=== PATIENT | male | born 1965 | race African-American/Black ===

== ENCOUNTER 2017-04-17 14:30 | Emergency (ER) | payer MEDICARE ==
[2017-04-17 16:13] LABS: #Lymphocytes 1.3 thou/uL (1.20-3.40); #Monocytes 0.4 thou/uL (0.11-0.59); #Neutrophils 3.7 thou/uL (1.40-6.50); %Basophils 0.8 % (0.0-1.0); %Eosinophils 0.3 % (0.0-10.0); %Lymphocytes 24.3 % (21.0-51.0); %Monocytes 7.3 % (0.0-10.0); Hematocrit 47.8 % (42.0-52.0); Mean Platelet Volume 7.3 fL (7.4-10.4); Red Blood Cell (RBC) Count 4.52 mill/uL (4.70-6.10); White Blood Cell (WBC) Count 5.5 thou/uL (4.8-10.8)
--- NOTE | 2017-04-17 16:25 | RAD ---
TWO VIEWS CHEST INDICATION: Chest pain. FINDINGS: There is no consolidation, effusion, or pneumothorax. Cardiac silhouette is normal in size. IMPRESSION: No focal consolidation. POS: [facility]
[2017-04-17 16:32] LABS: Macrocytosis SLIGHT = 6-15 cells (100X) (0-5/hpf)
[2017-04-17 16:34] LABS: ALT (SGPT) 55 U/L (8-55); AST (SGOT) 121 U/L (5-34); Alkaline Phosphatase 91 U/L (40-150); Anion Gap 20 mmol/L (10-20); BUN (Urea Nitrogen) 4 mg/dL (8.4-25.7); Bilirubin, Total 1.4 mg/dL (0.2-1.2); CK (CPK) 124 U/L (30-200); Calc. Creatinine Clearance 0 mL/min (70-130); Calcium 9.7 mg/dL (7.8-10.44); Carbon Dioxide 24 mmol/L (22-29); Chloride 100 mmol/L (98-107); Estimated GFR-MDRD 83; Globulin 3.6 g/dL (2.4-3.5)
[2017-04-17 16:37] LABS: Troponin I Less than 0.010 ng/mL (< 0.028)
[2017-04-17 19:57] LABS: Troponin I Less than 0.010 ng/mL (< 0.028)
--- NOTE | 2017-04-19 15:24 | EKG ---
Test Reason : EKG CHANGES Blood Pressure : / mmHG Vent. Rate : 085 BPM Atrial Rate : 085 BPM P-R Int : 146 ms QRS Dur : 070 ms QT Int : 382 ms P-R-T Axes : 077 059 067 degrees QTc Int : 454 ms Normal sinus rhythm Possible Left atrial enlargement Nonspecific T wave abnormality No STEMI Abnormal ECG Confirmed by LILO ARAGON M.D. ([id number]), loan expeditor ANDREA DOMINGO ([id number] on 04/19/2017 3:23:52 PM Referred By: RICHARDSON Confirmed By:LILO ARAGON M.D.
== END 2017-04-17 20:20 | disposition home or self-care (01) ==
LOC: ERS 14:30
DX: I10 Essential (primary) hypertension (principal); R94.31 Abnormal electrocardiogram [ECG] [EKG]; F31.9 Bipolar disorder, unspecified; F17.210 Nicotine dependence, cigarettes, uncomplicated
CPT/HCPCS: 36415; 71020; 80053; 82553; 84484; 85025; 93005; 99406

== ENCOUNTER 2019-03-22 07:40 | Outpatient (CLI) | payer MEDICARE, MEDICAID ==
--- NOTE | 2019-03-22 08:10 | RAD ---
EXAM: Two views chest PROVIDED CLINICAL HISTORY: Cough. COMPARISON: 04/17/2017 FINDINGS: Cardiac silhouette and pulmonary vasculature are within normal limits. The lungs are clear. The osse ous structures have a normal appearance. Chest is stable compared to prior study. IMPRESSION: No acute cardiopulmonary process.
== END 2019-03-22 07:41 | disposition home or self-care (01) ==
LOC: BICRAD 07:40
PROVIDERS: ATTEND Internal Medicine
DX: R05 Cough (principal)
CPT/HCPCS: 71046

== ENCOUNTER 2021-09-19 14:49 | Inpatient (IN) | payer MEDICARE, MEDICAID ==
[2021-09-19] MEDS ORDERED: Ondansetron PF 4 MG/2 ML Vial ONE (15:25)
[2021-09-19 16:16] LABS: #Basophils 0.1 thou/uL (0.0-0.2); #Eosinphils 0.1 thou/uL (0.0-0.7); #Lymphocytes 1.6 thou/uL (1.20-3.40); #Monocytes 0.7 thou/uL (0.11-0.59); #Neutrophils 4.6 thou/uL (1.40-6.50); %Basophils 0.8 % (0.0-1.0); %Eosinophils 1.3 % (0.0-10.0); %Monocytes 10.1 % (0.0-10.0); %Neutrophils 64.9 % (42.0-75.0); Hemoglobin 14.3 g/dL (14.0-18.0); Mean Corpuscular HGB CONC 31.2 g/dL (32.0-36.0); Mean Corpuscular Hemoglobin 28.1 pg (27.0-31.0); Mean Corpuscular Volume 89.9 fL (78.0-98.0); Mean Platelet Volume 7.3 fL (7.4-10.4); Platelet Count 375 thou/uL (130-400); RBC Distribution Width 16.5 % (11.5-14.5); Red Blood Cell (RBC) Count 5.07 mill/uL (4.70-6.10); White Blood Cell (WBC) Count 7.1 thou/uL (4.8-10.8)
[2021-09-19 16:36] LABS: ALT (SGPT) 19 U/L (8-55); AST (SGOT) 40 U/L (5-34); Albumin 4.8 g/dL (3.5-5.0); Alkaline Phosphatase 72 U/L (40-110); BUN (Urea Nitrogen) 36 mg/dL (8.4-25.7); Bilirubin, Total 1.3 mg/dL (0.2-1.2); Calc. Creatinine Clearance 0 mL/min (70-130); Calcium 10.3 mg/dL (7.8-10.44); Globulin 4.1 g/dL (2.4-3.5); Glucose 113 mg/dL (70-105); Magnesium 2.3 mg/dL (1.6-2.6); Protein, Total 8.9 g/dL (6.0-8.3); Sodium 132 mmol/L (136-145)
[2021-09-19 16:47] LABS: Anion Gap 25 mmol/L (10-20)
[2021-09-19 17:02] LABS: Carbon Dioxide 42 mmol/L (22-29); Chloride 65 mmol/L (98-107); Potassium 2.3 mmol/L (3.5-5.1)
[2021-09-19] MEDS ORDERED: Potassium Chloride 20 MEQ/100 ML PREMIX BAG ONE ×2 (17:48→19:55)
[2021-09-19] MEDS ORDERED: Ondansetron PF 4 MG/2 ML Vial IVP PRN (18:10)
[2021-09-19] MEDS ORDERED: Senokot S 8.6-50 MG TAB PO PRN (18:10)
[2021-09-19] MEDS ORDERED: hydrALAZINE 20 MG/ML VIAL SLOW IVP PRN (18:18)
[2021-09-19] MEDS ORDERED: Sodium Chloride 0.9% 1,000 ML IV SCH (18:30)
[2021-09-19] MEDS ORDERED: Lorazepam 2 MG/ML VIAL IM PRN (19:02)
[2021-09-19] MEDS ORDERED: Lorazepam 1 MG TAB PO PRN (19:02)
[2021-09-19 19:03] LABS: Phosphorus 5.5 mg/dL (2.3-4.7)
[2021-09-19 19:12] LABS: Bilirubin Negative (Negative); Blood, Urine Negative (Negative); Clarity Clear (Clear); Glucose, Urine (Dipstick) Normal (Negative); Ketone, Urine Negative (Negative); Leukocyte Negative Leu/uL (Negative); Nitrite Negative (Negative); Protein, Urine (Dipstick) Negative (Neg-Trace); Specific Gravity, Urine 1.014 (1.002-1.036); pH, Urine 7.5 (5.0-9.0)
[2021-09-19] MEDS ORDERED: Electrolyte Replacement Protocol 1 EACH FS PRN (19:15)
[2021-09-19 19:23] LABS: Amphetamine Not Detected (NotDetected); Barbiturates Screen Not Detected (NotDetected); Benzodiazepine Screen Not Detected (NotDetected); Cocaine Metabolite Screen Not Detected (NotDetected); Methadone Not Detected (NotDetected); Methamphetamine Not Detected (NotDetected); Opiate Screen Not Detected (NotDetected); Oxycodone Screen Not Detected (NotDetected); Phencyclidine (PCP) Not Detected (NotDetected); THC/Cannabinoid Screen Detected (NotDetected); Tricyclic Screen Not Detected (NotDetected)
[2021-09-19 22:00] LABS: Creatinine, Urine 123.78 mg/dL (63-166); Potassium, Urine 19.9 mmol/L
[2021-09-19] MEDS: Thiamine HCl 200 MG/2 ML VIAL SLOW IVP SCH (22:22)
[2021-09-19] MEDS: Lorazepam 1 MG TAB PO SCH (22:22)
[2021-09-19] MEDS: Heparin 5,000 UNITS/ML VIAL SC SCH (22:24)
[2021-09-19] MEDS: Nicotine 21 MG PATCH TD SCH (23:36)
[2021-09-20] MEDS ORDERED: Sodium Chloride 0.9% 1,000 ML IV SCH (03:00)
[2021-09-20] MEDS: Lorazepam 1 MG TAB PO SCH ×4 (03:21→20:35)
[2021-09-20] MEDS ORDERED: Sodium Chloride 0.9% 500 ML IV SCH (04:30)
[2021-09-20 05:18] LABS: #Eosinphils 0.1 thou/uL (0.0-0.7); #Lymphocytes 2.1 thou/uL (1.20-3.40); #Monocytes 0.7 thou/uL (0.11-0.59); #Neutrophils 3.7 thou/uL (1.40-6.50); %Basophils 0.7 % (0.0-1.0); %Eosinophils 1.8 % (0.0-10.0); %Lymphocytes 31.4 % (21.0-51.0); %Monocytes 10.2 % (0.0-10.0); Hemoglobin 11.3 g/dL (14.0-18.0); Mean Corpuscular HGB CONC 32.2 g/dL (32.0-36.0); Mean Corpuscular Hemoglobin 29.3 pg (27.0-31.0); Mean Platelet Volume 6.8 fL (7.4-10.4); Platelet Count 287 thou/uL (130-400); RBC Distribution Width 16.3 % (11.5-14.5); Red Blood Cell (RBC) Count 3.87 mill/uL (4.70-6.10); White Blood Cell (WBC) Count 6.6 thou/uL (4.8-10.8)
[2021-09-20 05:48] LABS: Anion Gap 16 mmol/L (10-20); Carbon Dioxide 39 mmol/L (22-29); Chloride 79 mmol/L (98-107); Sodium 132 mmol/L (136-145)
[2021-09-20 05:55] LABS: ALT (SGPT) 15 U/L (8-55); AST (SGOT) 27 U/L (5-34); Albumin 3.6 g/dL (3.5-5.0); Alkaline Phosphatase 52 U/L (40-110); BUN (Urea Nitrogen) 33 mg/dL (8.4-25.7); Bilirubin, Total 0.9 mg/dL (0.2-1.2); Calc. Creatinine Clearance 30 mL/min (70-130); Calcium 8.7 mg/dL (7.8-10.44); Globulin 2.8 g/dL (2.4-3.5); Glucose 144 mg/dL (70-105); Potassium 2.3 mmol/L (3.5-5.1); Protein, Total 6.4 g/dL (6.0-8.3)
[2021-09-20] MEDS ORDERED: Potassium Chloride 20 MEQ TAB PO SCH (06:15)
[2021-09-20] MEDS ORDERED: Potassium Chloride 20 MEQ in Premix Bag 1 BAG IVPB SCH (06:30)
[2021-09-20 06:32] LABS: Magnesium 2.1 mg/dL (1.6-2.6)
[2021-09-20] MEDS: Sodium Chloride 0.9% 1,000 ML IV SCH ×3 (08:59→20:30)
[2021-09-20] MEDS: Folic Acid 1 MG TAB PO SCH (09:01)
[2021-09-20] MEDS: Multivit, Therapeutic 1 TAB PO SCH (09:01)
[2021-09-20] MEDS: Heparin 5,000 UNITS/ML VIAL SC SCH ×2 (09:01→20:33)
[2021-09-20] MEDS: Pantoprazole 40 MG VIAL IVP SCH (09:02)
[2021-09-20] MEDS: Potassium Chloride 20 MEQ TAB PO SCH ×3 (09:10→17:40)
[2021-09-20] MEDS ORDERED: chlorproMAZINE HCl 25 MG in Sodium Chloride 0.9% 50 ML IVPB PRN (11:05)
[2021-09-20 11:42] LABS: Syphilis Antibody Nonreactive (Nonreactive); Syphilis Antibody Index 0.06 S/CO (<1.00 Non-Reactive)
[2021-09-20 13:59] LABS: SARS-CoV-2 PCR by NAA Not Detected (NotDetected)
[2021-09-20 15:32] LABS: Anion Gap 11 mmol/L (10-20); BUN (Urea Nitrogen) 28 mg/dL (8.4-25.7); Calc. Creatinine Clearance 34 mL/min (70-130); Calcium 8.4 mg/dL (7.8-10.44); Carbon Dioxide 36 mmol/L (22-29); Chloride 89 mmol/L (98-107); Glucose 124 mg/dL (70-105); Potassium 3.1 mmol/L (3.5-5.1); Sodium 133 mmol/L (136-145)
[2021-09-20] MEDS: Nicotine 21 MG PATCH TD SCH (17:41)
[2021-09-20] MEDS ORDERED: Electrolyte Replacement Protocol FS PRN (17:45)
[2021-09-20] MEDS ORDERED: Lorazepam 1 MG TAB PO PRN (19:02)
[2021-09-20] MEDS: Thiamine HCl 200 MG/2 ML VIAL SLOW IVP SCH (20:33)
[2021-09-20 22:40] LABS: Potassium 3.5 mmol/L (3.5-5.1)
[2021-09-21] MEDS: Sodium Chloride 0.9% 1,000 ML IV SCH ×4 (01:33→20:51)
[2021-09-21] MEDS: Lorazepam 1 MG TAB PO SCH ×3 (04:19→17:21)
[2021-09-21 05:32] LABS: Anion Gap 10 mmol/L (10-20); BUN (Urea Nitrogen) 21 mg/dL (8.4-25.7); Calc. Creatinine Clearance 46 mL/min (70-130); Calcium 8.4 mg/dL (7.8-10.44); Carbon Dioxide 30 mmol/L (22-29); Chloride 99 mmol/L (98-107); Glucose 111 mg/dL (70-105); Magnesium 1.8 mg/dL (1.6-2.6); Potassium 3.4 mmol/L (3.5-5.1); Sodium 136 mmol/L (136-145)
[2021-09-21] MEDS ORDERED: Magnesium 2 GM/50 ML(in water) 2 GM in Premix Bag 1 BAG IVPB SCH (06:00)
[2021-09-21 07:15] LABS: Phosphorus 1.8 mg/dL (2.3-4.7)
[2021-09-21] MEDS ORDERED: Potassium Phosphate 30 MMOL in Sodium Chloride 0.9% 250 ML 250 ML IVPB SCH (08:00)
[2021-09-21] MEDS ORDERED: Senokot S 8.6-50 MG TAB PO PRN (08:00)
[2021-09-21] MEDS: Folic Acid 1 MG TAB PO SCH (08:26)
[2021-09-21] MEDS: Multivit, Therapeutic 1 TAB PO SCH (08:26)
[2021-09-21] MEDS: Heparin 5,000 UNITS/ML VIAL SC SCH ×2 (08:27→20:51)
[2021-09-21] MEDS: Pantoprazole 40 MG VIAL IVP SCH (08:33)
[2021-09-21 10:23] VITALS: BMI 20.1
[2021-09-21] MEDS: Acetaminophen 325 MG TAB PO PRN (14:46)
[2021-09-21] MEDS: Nicotine 21 MG PATCH TD SCH (17:23)
[2021-09-21] MEDS ORDERED: Lorazepam 1 MG TAB PO PRN (19:02)
[2021-09-21] MEDS ORDERED: Lorazepam 0.5 MG TAB PO SCH (19:15)
[2021-09-21 19:24] LABS: Potassium 3.9 mmol/L (3.5-5.1)
[2021-09-21] MEDS: Thiamine HCl 200 MG/2 ML VIAL SLOW IVP SCH (20:51)
[2021-09-22] MEDS: Sodium Chloride 0.9% 1,000 ML IV SCH (03:52)
[2021-09-22 05:22] LABS: Magnesium 1.5 mg/dL (1.6-2.6)
[2021-09-22 05:23] LABS: Phosphorus 1.8 mg/dL (2.3-4.7)
[2021-09-22 05:27] LABS: Iron 24 ug/dL (65-175); Iron Binding Capacity, Total 313 mcg/dL (261-462)
[2021-09-22] MEDS ORDERED: Potassium Chloride 10 MEQ/100 ML PREMIX BAG IVPB SCH (05:30)
[2021-09-22] MEDS ORDERED: Magnesium 2 GM/50 ML(in water) 2 GM in Premix Bag 1 BAG IVPB SCH ×2 (05:30→08:15)
[2021-09-22] MEDS: Acetaminophen 325 MG TAB PO PRN (05:58)
[2021-09-22] MEDS ORDERED: Potassium Chloride 10 MEQ in Premix Bag 1 BAG IVPB SCH (06:00)
[2021-09-22] MEDS ORDERED: Iron Sucrose Complex 500 MG in Sodium Chloride 0.9% 250 ML 250 ML IVPB SCH (06:45)
[2021-09-22 07:53] LABS: Hemoglobin 10.9 g/dL (14.0-18.0); Mean Corpuscular HGB CONC 32.1 g/dL (32.0-36.0); Mean Corpuscular Volume 93.6 fL (78.0-98.0); Mean Platelet Volume 7.3 fL (7.4-10.4); Platelet Count 346 thou/uL (130-400); RBC Distribution Width 16.7 % (11.5-14.5); Red Blood Cell (RBC) Count 3.62 mill/uL (4.70-6.10); White Blood Cell (WBC) Count 10.2 thou/uL (4.8-10.8)
[2021-09-22 08:09] LABS: Albumin 3.6 g/dL (3.5-5.0); Anion Gap 11 mmol/L (10-20); BUN (Urea Nitrogen) 13 mg/dL (8.4-25.7); Calc. Creatinine Clearance 65 mL/min (70-130); Calcium 8.6 mg/dL (7.8-10.44); Carbon Dioxide 26 mmol/L (22-29); Chloride 101 mmol/L (98-107); Glucose 82 mg/dL (70-105); Potassium 3.6 mmol/L (3.5-5.1); Sodium 134 mmol/L (136-145)
[2021-09-22 08:15] LABS: Phosphorus 1.8 mg/dL (2.3-4.7)
[2021-09-22] MEDS: Potassium Phosphate 15 MMOL in Sodium Chloride 0.9% 100 ML IVPB SCH ×2 (08:45→10:25)
[2021-09-22] MEDS: Folic Acid 1 MG TAB PO SCH (08:46)
[2021-09-22] MEDS: Multivit, Therapeutic 1 TAB PO SCH (08:46)
[2021-09-22] MEDS: Heparin 5,000 UNITS/ML VIAL SC SCH (08:46)
[2021-09-22] MEDS: Pantoprazole 40 MG VIAL IVP SCH ×2 (08:46→09:54)
[2021-09-22] MEDS ORDERED: Magnesium Oxide 400 MG TAB PO SCH (10:00)
[2021-09-22] MEDS ORDERED: PHOS-NAK 1 PKT PACK PO SCH (10:00)
[2021-09-22 15:56] VITALS: BP 133/79; TEMP 97.5
[2021-09-22] MEDS ORDERED: Lorazepam 0.5 MG TAB PO PRN (19:02)
[2021-09-22] MEDS ORDERED: Thiamine 100 MG TAB PO SCH (21:00)
== END 2021-09-22 15:55 | disposition home or self-care (01) | DRG 683 ==
LOC: ERS 14:49 → 2SW 19:00
PROVIDERS: ADMIT Internal Medicine; ATTEND Hospitalist
DX: N17.9 Acute kidney failure, unspecified (principal); E87.1 Hypo-osmolality and hyponatremia; E87.2 Acidosis; Z20.822 Contact with and (suspected) exposure to COVID-19; I10 Essential (primary) hypertension; E86.0 Dehydration; E87.8 Other disorders of electrolyte and fluid balance, not elsewhere classified; E87.6 Hypokalemia; F10.20 Alcohol dependence, uncomplicated; F31.9 Bipolar disorder, unspecified; I95.1 Orthostatic hypotension; R06.6 Hiccough; D64.9 Anemia, unspecified; E83.42 Hypomagnesemia; E83.39 Other disorders of phosphorus metabolism; C61 Malignant neoplasm of prostate; Z79.899 Other long term (current) drug therapy; K63.5 Polyp of colon; B96.81 Helicobacter pylori [H. pylori] as the cause of diseases classified elsewhere
CPT/HCPCS: 36415; 71045; 80048; 80053; 80306; 81003; 82550; 82570; 82728; 83540; 83550; 83735; 84100; 84133; 84156; 84300; 84484; 84540; 85025; 85027; 86780; 93005; 94760; 96374; 96375; 96376; C9113; J1644; J1756; J2405; J3230; J3411; J3475; J3480; J3490; J7030; J7050; U0003; U0005

== ENCOUNTER 2022-07-14 08:11 | Inpatient (IN) | payer OTHER, MEDICAID ==
[2022-07-14] MEDS ORDERED: Boostrix 0.5 ML (Tdap) VIAL (>/=7 yrs of age) ONE (08:30)
[2022-07-14 08:39] LABS: #Lymphocytes 3.3 thou/uL (1.20-3.40); #Monocytes 0.8 thou/uL (0.11-0.59); #Neutrophils 7.4 thou/uL (1.40-6.50); %Basophils 0.4 % (0.0-1.0); %Eosinophils 0.2 % (0.0-10.0); %Lymphocytes 28.5 % (21.0-51.0); %Monocytes 6.7 % (0.0-10.0); %Neutrophils 64.3 % (42.0-75.0); Hemoglobin 11.3 g/dL (14.0-18.0); Mean Corpuscular HGB CONC 32.9 g/dL (32.0-36.0); Mean Corpuscular Hemoglobin 31.2 pg (27.0-31.0); Mean Corpuscular Volume 94.8 fl (78.0-98.0); Mean Platelet Volume 6.6 fL (7.4-10.4); Platelet Count 338 10x3/uL (130-400); RBC Distribution Width 15.4 % (11.5-14.5); Red Blood Cell (RBC) Count 3.62 mill/uL (4.70-6.10); White Blood Cell (WBC) Count 11.6 10x3/uL (4.8-10.8)
[2022-07-14] MEDS ORDERED: Fentanyl 100 MCG/2 ML VIAL ONE (08:41)
[2022-07-14] MEDS ORDERED: Lidocaine 1% (PF) 30 ML VIAL ONE (08:43)
[2022-07-14] MEDS ORDERED: Verapamil 5 MG/2 ML VIAL ONE (08:45)
[2022-07-14] MEDS ORDERED: Nitroglycerin 100MG/250ML BOT 0 ML ONE (08:45)
[2022-07-14] MEDS ORDERED: Adenosine 6 MG/2 ML VIAL ONE (08:45)
[2022-07-14] MEDS ORDERED: FENTANYL 50 MCG/ML 1 ML VIAL ONE (09:16)
[2022-07-14] MEDS ORDERED: Midazolam HCl 2 mg/2 ml Vial ONE (09:16)
[2022-07-14 09:21] LABS: CKMB 2.9 ng/mL (0-6.6)
[2022-07-14] MEDS ORDERED: Heparin 10,000 UNITS/ 10 ML VIAL ONE (09:39)
[2022-07-14 09:53] LABS: ALT (SGPT) 9 U/L (8-55); AST (SGOT) 21 U/L (5-34); Albumin 4.3 g/dL (3.5-5.0); Alkaline Phosphatase 50 U/L (40-110); Anion Gap 21 mmol/L (10-20); BUN (Urea Nitrogen) 7 mg/dL (8.4-25.7); Bilirubin, Total 0.5 mg/dL (0.2-1.2); Calc. Creatinine Clearance 0 mL/min (70-130); Calcium 9.4 mg/dL (7.8-10.44); Carbon Dioxide 13 mmol/L (22-29); Chloride 107 mmol/L (98-107); Estimated GFR 68; Globulin 3.2 g/dL (2.4-3.5); Glucose 131 mg/dL (70-105); Protein, Total 7.5 g/dL (6.0-8.3); Sodium 138 mmol/L (136-145)
[2022-07-14] MEDS ORDERED: TICAGRELOR 90 MG TABLET ONE (09:56)
[2022-07-14 10:05] LABS: Potassium 2.6 mmol/L (3.5-5.1)
[2022-07-14] MEDS ORDERED: Nitroglycerin 0.4 MG TAB (25 Tab Bottle) SL PRN (10:05)
[2022-07-14] MEDS ORDERED: traMADol HCl 50 MG TAB PO PRN (10:05)
[2022-07-14] MEDS ORDERED: Mag-Al 1200 mg/1200 mg/30 ML UDCUP PO PRN (10:05)
[2022-07-14] MEDS ORDERED: Morphine 2 MG/ML VIAL SLOW IVP PRN (10:05)
[2022-07-14] MEDS ORDERED: Acetaminophen/Codeine 30-300mg Tablet PO PRN (10:05)
[2022-07-14] MEDS ORDERED: cloNIDine 0.1 MG TAB PO PRN (10:05)
[2022-07-14] MEDS ORDERED: Zolpidem Tartrate 5 MG TAB PO PRN (10:05)
[2022-07-14] MEDS ORDERED: Milk Of Magnesia 30 ML UDCUP PO PRN (10:05)
[2022-07-14] MEDS ORDERED: Potassium Chloride 20 MEQ TAB PO SCH (10:30)
[2022-07-14 10:46] LABS: CKMB 7.5 ng/mL (0-6.6)
[2022-07-14] MEDS ORDERED: Iopamidol 370 76% 100 ML VIAL ONE (12:48)
[2022-07-14 15:03] LABS: SARS-CoV-2 NAA Rapid Test Not Detected (NotDetected)
[2022-07-14 15:38] LABS: Amphetamine Not Detected (NotDetected); Barbiturates Screen Not Detected (NotDetected); Benzodiazepine Screen Not Detected (NotDetected); Cocaine Metabolite Screen Detected (NotDetected); Methadone Not Detected (NotDetected); Methamphetamine Detected (NotDetected); Opiate Screen Not Detected (NotDetected); Oxycodone Screen Not Detected (NotDetected); Phencyclidine (PCP) Not Detected (NotDetected); THC/Cannabinoid Screen Detected (NotDetected); Tricyclic Screen Not Detected (NotDetected)
[2022-07-14 16:43] LABS: Potassium 3.2 mmol/L (3.5-5.1)
[2022-07-14 16:53] LABS: CKMB 96.6 ng/mL (0-6.6)
[2022-07-14 16:56] LABS: Troponin I 11.407 ng/mL (< 0.028)
[2022-07-14] MEDS: Potassium Chloride 20 MEQ TAB PO SCH (17:45)
[2022-07-14] MEDS ORDERED: Potassium Chloride 40 MEQ in Sodium Chloride 0.9% 250 ML 250 ML IVPB SCH (17:45)
[2022-07-14] MEDS: Ondansetron PF 4 MG/2 ML Vial IVP PRN (19:26)
[2022-07-14] MEDS: Atorvastatin Calcium 40 MG TAB PO SCH (19:31)
[2022-07-14] MEDS: TICAGRELOR 90 MG TABLET PO SCH (19:31)
[2022-07-15 04:24] LABS: #Lymphocytes 1.8 thou/uL (1.20-3.40); #Monocytes 0.8 thou/uL (0.11-0.59); #Neutrophils 7.6 thou/uL (1.40-6.50); %Basophils 0.4 % (0.0-1.0); %Eosinophils 0.2 % (0.0-10.0); %Lymphocytes 17.1 % (21.0-51.0); %Neutrophils 74.2 % (42.0-75.0); Hemoglobin 12.5 g/dL (14.0-18.0); Mean Corpuscular HGB CONC 33.2 g/dL (32.0-36.0); Mean Corpuscular Hemoglobin 31.5 pg (27.0-31.0); Mean Platelet Volume 6.8 fL (7.4-10.4); Platelet Count 297 10x3/uL (130-400); RBC Distribution Width 15.4 % (11.5-14.5); Red Blood Cell (RBC) Count 3.98 mill/uL (4.70-6.10); White Blood Cell (WBC) Count 10.2 10x3/uL (4.8-10.8)
[2022-07-15 04:40] LABS: ALT (SGPT) 24 U/L (8-55); AST (SGOT) 151 U/L (5-34); Albumin 4.1 g/dL (3.5-5.0); Alkaline Phosphatase 57 U/L (40-110); Anion Gap 15 mmol/L (10-20); BUN (Urea Nitrogen) 5 mg/dL (8.4-25.7); Bilirubin, Total 1.6 mg/dL (0.2-1.2); Calc. Creatinine Clearance 102 mL/min (70-130); Calcium 9.6 mg/dL (7.8-10.44); Carbon Dioxide 18 mmol/L (22-29); Cardiac Risk 1.8 (Less than 4.5); Chloride 105 mmol/L (98-107); Cholesterol 159 mg/dl (< 200 Desired); Estimated GFR 101; Globulin 3.2 g/dL (2.4-3.5); Glucose 91 mg/dL (70-105); HDL Cholesterol 89 mg/dL (>60 Neg Risk); LDL Cholesterol, Calculated 64 mg/dL; Potassium 3.5 mmol/L (3.5-5.1); Protein, Total 7.3 g/dL (6.0-8.3); Sodium 134 mmol/L (136-145); Triglycerides 31 mg/dL (Less than 150)
[2022-07-15] MEDS: Aspirin Chewable 81 MG TAB PO SCH (09:20)
[2022-07-15] MEDS: Potassium Chloride 20 MEQ TAB PO SCH ×2 (09:20→16:41)
[2022-07-15] MEDS: TICAGRELOR 90 MG TABLET PO SCH ×2 (12:17→21:27)
[2022-07-15 13:45] VITALS: BP 95/82
[2022-07-15 15:15] VITALS: BMI 20.6
[2022-07-15] MEDS: Ondansetron PF 4 MG/2 ML Vial IVP PRN (17:56)
[2022-07-15] MEDS: Atorvastatin Calcium 40 MG TAB PO SCH (21:26)
[2022-07-16 04:25] LABS: ALT (SGPT) 19 U/L (8-55); AST (SGOT) 65 U/L (5-34); Albumin 3.9 g/dL (3.5-5.0); Alkaline Phosphatase 52 U/L (40-110); Anion Gap 14 mmol/L (10-20); BUN (Urea Nitrogen) 9 mg/dL (8.4-25.7); Bilirubin, Total 1.1 mg/dL (0.2-1.2); Calc. Creatinine Clearance 75 mL/min (70-130); Calcium 9.7 mg/dL (7.8-10.44); Carbon Dioxide 19 mmol/L (22-29); Chloride 105 mmol/L (98-107); Estimated GFR 74; Globulin 3.4 g/dL (2.4-3.5); Glucose 107 mg/dL (70-105); Potassium 4.1 mmol/L (3.5-5.1); Protein, Total 7.3 g/dL (6.0-8.3); Sodium 134 mmol/L (136-145)
[2022-07-16] MEDS: Potassium Chloride 20 MEQ TAB PO SCH ×2 (09:07→18:45)
[2022-07-16] MEDS: Aspirin Chewable 81 MG TAB PO SCH (09:07)
[2022-07-16] MEDS: TICAGRELOR 90 MG TABLET PO SCH (09:08)
[2022-07-16 12:05] VITALS: TEMP 98.7
[2022-07-17] MEDS ORDERED: FLU VACC QS2022-23(6MOS UP)/PF 60 MCG/0.5 ML SYRINGE IM ONE (13:30)
== END 2022-07-16 18:20 | disposition home or self-care (01) | DRG 249 ==
LOC: ERS 08:11 → CCL 09:07 → CCU 10:12
PROVIDERS: ADMIT Internal Medicine Cardiovascular Disease; ATTEND Internal Medicine Cardiovascular Disease
PROC: 02703DZ Dilation of Coronary Artery, One Artery with Intraluminal Device, Percutaneous Approach (ICD-10-PCS; principal; 2022-07-14)
PROC: 4A023N7 Measurement of Cardiac Sampling and Pressure, Left Heart, Percutaneous Approach (ICD-10-PCS; 2022-07-14)
PROC: B2111ZZ Fluoroscopy of Multiple Coronary Arteries using Low Osmolar Contrast (ICD-10-PCS; 2022-07-14)
PROC: B2151ZZ Fluoroscopy of Left Heart using Low Osmolar Contrast (ICD-10-PCS; 2022-07-14)
DX: I21.09 ST elevation (STEMI) myocardial infarction involving other coronary artery of anterior wall (principal); C16.9 Malignant neoplasm of stomach, unspecified; Z20.822 Contact with and (suspected) exposure to COVID-19; I10 Essential (primary) hypertension; F17.210 Nicotine dependence, cigarettes, uncomplicated; C61 Malignant neoplasm of prostate; F10.90 Alcohol use, unspecified, uncomplicated; K21.9 Gastro-esophageal reflux disease without esophagitis; F31.9 Bipolar disorder, unspecified; F12.10 Cannabis abuse, uncomplicated; R91.1 Solitary pulmonary nodule
CPT/HCPCS: 36415; 70450; 72125; 80053; 80061; 80306; 82553; 84484; 85025; 85347; 90715; 92941; 93005; 93010; 93306; 93458; 93798; C1769; C1876; C1887; J0153; J1644; J2001; J2250; J2272; J2405; J3010; J3480; J7050; Q9967; U0002

== ENCOUNTER 2023-03-26 22:43 | Inpatient (IN) | payer OTHER ==
[2023-03-27] LABS: #Monocytes 0.5 thou/uL (0.11-0.59); #Neutrophils 6.3 thou/uL (1.40-6.50); %Basophils 0.3 % (0.0-1.0); %Eosinophils 0.4 % (0.0-10.0); %Lymphocytes 24.4 % (21.0-51.0); %Monocytes 5.2 % (0.0-10.0); %Neutrophils 69.4 % (42.0-75.0); Hematocrit 21.4 % (42.0-52.0); Hemoglobin 6.9 g/dL (14.0-18.0); Mean Corpuscular HGB CONC 32.2 g/dL (32.0-36.0); Mean Corpuscular Hemoglobin 33.3 pg (27.0-31.0); Mean Corpuscular Volume 103.4 fl (78.0-98.0); Mean Platelet Volume 8.9 fL (7.4-10.4); Platelet Count 301 10x3/uL (130-400); Red Blood Cell (RBC) Count 2.07 mill/uL (4.70-6.10)
[2023-03-27] MEDS ORDERED: Lorazepam 1 MG TAB ONE (00:17)
[2023-03-27 00:26] LABS: ALT (SGPT) 8 U/L (8-55); AST (SGOT) 16 U/L (5-34); Acetaminophen Less than 10 mcg/mL (10.0-30.0); Albumin 4.1 g/dL (3.5-5.0); Alcohol Less than 10.0 mg/dL (Less than 10); Alkaline Phosphatase 63 U/L (40-110); Anion Gap 17 mmol/L (10-20); BUN (Urea Nitrogen) 7 mg/dL (8.4-25.7); Bilirubin, Total 0.4 mg/dL (0.2-1.2); Calc. Creatinine Clearance 0 mL/min (70-130); Calcium 9.1 mg/dL (7.8-10.44); Carbon Dioxide 17 mmol/L (22-29); Chloride 109 mmol/L (98-107); Estimated GFR 54; Globulin 2.3 g/dL (2.4-3.5); Glucose 72 mg/dL (70-105); Potassium 3.5 mmol/L (3.5-5.1); Protein, Total 6.4 g/dL (6.0-8.3); Salicylate Less than 8.0 mg/dL (15.0-30.0); Sodium 139 mmol/L (136-145)
[2023-03-27 00:29] LABS: Troponin I 0.027 ng/mL (< 0.028)
[2023-03-27 02:52] LABS: Bacteria/HPF None Seen HPF (None Seen); Bilirubin Negative (Negative); Blood, Urine Negative (Negative); CAUTI Indications for Culture Alt mental st,lethar; Clarity Clear (Clear); Glucose, Urine (Dipstick) Normal (Negative); Ketone, Urine Negative (Negative); Leukocyte Negative Leu/uL (Negative); Nitrite Negative (Negative); Protein, Urine (Dipstick) Negative (Neg-Trace); RBC/HPF 0-3 HPF (0-3); Specific Gravity, Urine 1.014 (1.002-1.036); Squamous Epithelial 0-3 HPF (0-3); Urobilinogen Normal mg/dL (Less than 2); WBC/HPF 0-3 HPF (0-3); pH, Urine 6.5 (5.0-9.0)
[2023-03-27 02:53] LABS: Urine Culture Reflex No No
[2023-03-27 02:59] LABS: Amphetamine Not Detected (NotDetected); Barbiturates Screen Not Detected (NotDetected); Benzodiazepine Screen Not Detected (NotDetected); Cocaine Metabolite Screen Detected (NotDetected); Methadone Not Detected (NotDetected); Methamphetamine Detected (NotDetected); Opiate Screen Not Detected (NotDetected); Oxycodone Screen Not Detected (NotDetected); Phencyclidine (PCP) Not Detected (NotDetected); THC/Cannabinoid Screen Detected (NotDetected); Tricyclic Screen Not Detected (NotDetected)
[2023-03-27] MEDS ORDERED: Ondansetron PF 4 MG/2 ML Vial IVP PRN (03:31)
[2023-03-27] MEDS ORDERED: Acetaminophen 325 MG TAB PO PRN (03:31)
[2023-03-27] MEDS ORDERED: Furosemide 40 MG/4 ML VIAL SLOW IVP SCH ×3 (03:45→14:00)
[2023-03-27] MEDS ORDERED: Pantoprazole 40 MG VIAL IVP SCH ×2 (03:45→21:00)
[2023-03-27 03:46] LABS: Iron 50 ug/dL (65-175); Iron Binding Capacity, Total 314 mcg/dL (261-462)
[2023-03-27] MEDS ORDERED: Lorazepam 2 MG/ML VIAL SLOW IVP SCH (06:00)
[2023-03-27] MEDS ORDERED: Dexmedetomidine 400 MCG, Admixture Fee 1 EACH in Sodium Chloride 0.9% 96 ML IVPB SCH (07:00)
[2023-03-27] MEDS ORDERED: Dexmedetomidine In 0.9 % NaCl 100 ML IVPB SCH (07:00)
[2023-03-27 08:45] VITALS: BMI 21.5
[2023-03-27] MEDS ORDERED: Aspirin Chewable 81 MG TAB PO SCH (09:00)
[2023-03-27] MEDS ORDERED: Lactated Ringer's 500 ML IV SCH (09:30)
[2023-03-27 09:50] LABS: Hematocrit 17.5 % (42.0-52.0); Hemoglobin 5.7 g/dL (14.0-18.0); Platelet Count 233 10x3/uL (130-400)
[2023-03-27] MEDS ORDERED: FLU VACC QS2023-24(6MOS UP)/PF 60 MCG/0.5 ML SYRINGE IM ONE (14:00)
[2023-03-27] MEDS ORDERED: Lorazepam 2 MG/ML VIAL SLOW IVP PRN (17:21)
[2023-03-27 19:00] VITALS: TEMP 97.8
[2023-03-27 19:04] VITALS: BP 124/75
[2023-03-27] MEDS ORDERED: Atorvastatin Calcium 40 MG TAB PO SCH (21:00)
== END 2023-03-27 18:10 | disposition left against medical advice (07) | DRG 91 ==
LOC: ERS 22:43 → 2NO 03-27 03:31 → OBSVTOIN 03-27 07:25 → IMCU/EMU 03-27 07:47
PROVIDERS: ADMIT Internal Medicine; ATTEND Student in an Organized Health Care Education/Training Program
PROC: 30233N1 Transfusion of Nonautologous Red Blood Cells into Peripheral Vein, Percutaneous Approach (ICD-10-PCS; principal; 2023-03-27)
DX: G92.8 Other toxic encephalopathy (principal); I50.43 Acute on chronic combined systolic (congestive) and diastolic (congestive) heart failure; N17.9 Acute kidney failure, unspecified; D50.0 Iron deficiency anemia secondary to blood loss (chronic); I25.10 Atherosclerotic heart disease of native coronary artery without angina pectoris; I11.0 Hypertensive heart disease with heart failure; K21.9 Gastro-esophageal reflux disease without esophagitis; C61 Malignant neoplasm of prostate; F19.10 Other psychoactive substance abuse, uncomplicated; M17.9 Osteoarthritis of knee, unspecified; E78.5 Hyperlipidemia, unspecified; F15.10 Other stimulant abuse, uncomplicated; Z79.899 Other long term (current) drug therapy; Z95.5 Presence of coronary angioplasty implant and graft; Z79.82 Long term (current) use of aspirin
CPT/HCPCS: 36415; 36430; 70450; 71045; 72125; 80053; 80306; 80307; 81001; 82607; 83540; 83550; 83605; 83880; 84443; 84484; 85025; 86850; 86900; 86901; 93005; C9113; J2060; J7120; P9016

== ENCOUNTER 2024-05-18 14:34 | Emergency (ER) | payer OTHER, MEDICAID ==
[2024-05-18 16:20] LABS: #Basophils 0.05 10x3/uL (0.0-0.2); %Basophils 0.4 % (0.0-1.0); %Eosinophils 0.4 % (0.0-10.0); %Lymphocytes 19.3 % (21.0-51.0); %Monocytes 6.4 % (0.0-10.0); %Neutrophils 73.1 % (42.0-75.0); Hematocrit 37.7 % (42.0-52.0); Hemoglobin 13.8 g/dL (14.0-18.0); Mean Corpuscular HGB CONC 36.6 g/dL (32.0-36.0); Mean Corpuscular Hemoglobin 33.7 pg (27.0-31.0); Mean Corpuscular Volume 92.2 fL (78.0-98.0); Mean Platelet Volume 9.7 fL (7.4-10.4); Platelet Count 434 10x3/uL (130-400); RBC Distribution Width 12.6 % (11.5-14.5); Red Blood Cell (RBC) Count 4.09 mill/uL (4.70-6.10)
[2024-05-18 16:56] LABS: ALT (SGPT) 12 U/L (8-55); AST (SGOT) 48 U/L (5-34); Albumin 3.3 g/dL (3.5-5.0); Alkaline Phosphatase 78 U/L (40-110); Anion Gap 25 mmol/L (10-20); BUN (Urea Nitrogen) 27 mg/dL (8.4-25.7); Bilirubin, Total 1.1 mg/dL (0.2-1.2); Calc. Creatinine Clearance 0 mL/min (70-130); Calcium 10.1 mg/dL (7.8-10.44); Carbon Dioxide 50 mmol/L (22-29); Chloride 59 mmol/L (98-107); Estimated GFR 42; Globulin 4.5 g/dL (2.4-3.5); Glucose 107 mg/dL (70-105); Potassium 1.7 mmol/L (3.5-5.1); Protein, Total 7.8 g/dL (6.0-8.3); Sodium 132 mmol/L (136-145)
[2024-05-18 17:51] LABS: Magnesium 2.5 mg/dL (1.6-2.6)
== END 2024-05-18 18:10 | disposition left against medical advice (07) ==
LOC: ERS 14:34
DX: Z53.21 Procedure and treatment not carried out due to patient leaving prior to being seen by health care provider (principal)
CPT/HCPCS: 36415; 71045; 80053; 83735; 84484; 85025; 93005

== ENCOUNTER 2024-06-14 10:29 | Inpatient (IN) | payer OTHER, MEDICAID ==
[2024-06-14] MEDS ORDERED: Rocuronium Bromide 10 MG/ML (10ML VIAL) ONE (10:50)
[2024-06-14] MEDS ORDERED: Etomidate 40 MG (20 mL) VIAL ONE (10:50)
[2024-06-14] MEDS ORDERED: Propofol 1,000 MG/100 ML VIAL IV ONE (10:53)
[2024-06-14] MEDS ORDERED: Fentanyl CADD 100 ML IV SCH ×2 (11:15→16:00)
[2024-06-14 11:16] LABS: Actual Bicarbonate (HCO3a) 37.7 mEq/L (22-28); Analyzer IN Cardio ER; Base Excess (BEa) 14.9 mEq/L (-2.0 to +3.0); CO2 Tension 39.3 mmHg (35.0-45.0); Calcium, Ionized (arterial) 0.92 mmol/L (1.12-1.30); Carboxyhemoglobin (COHb) 0.1 gm% (0.0-3.0); Hematocrit-ABG 27 % (42.0-52.0); Hemoglobin (Hb) 9.1 g/dL (14.0-18.0); O2 Tension (PaO2), arterial 96.7 mmHg (80.0-100.0)
[2024-06-14 11:20] LABS: ALV-art Gradient 139.375 mmHg (0-20); Potassium - ABG Lab 1.96 mmol/L (3.70-5.30); Puncture Site Right Brachial art
[2024-06-14 11:33] LABS: #Basophils Less than 0.03 10x3/uL (0.0-0.2); %Basophils 0.2 % (0.0-1.0); %Eosinophils 0.3 % (0.0-10.0); %Lymphocytes 7.3 % (21.0-51.0); %Monocytes 4.7 % (0.0-10.0); %Neutrophils 86.6 % (42.0-75.0); Hematocrit 23.8 % (42.0-52.0); Hemoglobin 8.4 g/dL (14.0-18.0); Mean Corpuscular HGB CONC 35.3 g/dL (32.0-36.0); Mean Corpuscular Hemoglobin 33.3 pg (27.0-31.0); Mean Corpuscular Volume 94.4 fL (78.0-98.0); Platelet Count 297 10x3/uL (130-400); RBC Distribution Width 13.3 % (11.5-14.5); Red Blood Cell (RBC) Count 2.52 mill/uL (4.70-6.10)
[2024-06-14 11:54] LABS: Troponin I 0.092 ng/mL (< 0.028)
[2024-06-14 11:58] LABS: Acetaminophen Less than 10 mcg/mL (Less than 10); Alcohol Less than 10.0 mg/dL (Less than 10); Salicylate Less than 8.0 mg/dL (Less than 8.0)
[2024-06-14] MEDS ORDERED: Dextrose 10% in Water 250 ML ONE (12:11)
[2024-06-14 12:12] LABS: Bacteria/HPF None Seen HPF (None Seen); Bilirubin Negative (Negative); Blood, Urine Negative (Negative); CAUTI Indications for Culture Alt mental st,lethar; Clarity Clear (Clear); Glucose, Urine (Dipstick) Normal (Negative); Ketone, Urine Trace mg/dL (Negative); Leukocyte Negative Leu/uL (Negative); Nitrite Negative (Negative); Protein, Urine (Dipstick) 30 mg/dL (Neg-Trace); RBC/HPF 0-3 HPF (0-3); Specific Gravity, Urine 1.025 (1.002-1.036); Squamous Epithelial None Seen HPF (0-3); Urobilinogen 12 mg/dL (Less than 2); WBC/HPF 0-3 HPF (0-3)
[2024-06-14 12:12] LABS: ALT (SGPT) 35 U/L (8-55); AST (SGOT) 96 U/L (5-34); Albumin 3.3 g/dL (3.5-5.0); Alkaline Phosphatase 83 U/L (40-110); Anion Gap 30 mmol/L (10-20); BUN (Urea Nitrogen) 17 mg/dL (8.4-25.7); Bilirubin, Total 2.1 mg/dL (0.2-1.2); CK (CPK) 1973 U/L (30-200); Calc. Creatinine Clearance 0 mL/min (70-130); Calcium 8.7 mg/dL (7.8-10.44); Carbon Dioxide 31 mmol/L (22-29); Chloride 83 mmol/L (98-107); Estimated GFR 52; Globulin 3.6 g/dL (2.4-3.5); Glucose 46 mg/dL (70-105); Lipase 4 U/L (8-78); Magnesium 1.7 mg/dL (1.6-2.6); Potassium 3.4 mmol/L (3.5-5.1); Protein, Total 6.9 g/dL (6.0-8.3); Sodium 141 mmol/L (136-145)
[2024-06-14 12:13] LABS: Amphetamine Detected (NotDetected); Barbiturates Screen Not Detected (NotDetected); Benzodiazepine Screen Not Detected (NotDetected); Cocaine Metabolite Screen Detected (NotDetected); Methadone Not Detected (NotDetected); Methamphetamine Detected (NotDetected); Opiate Screen Not Detected (NotDetected); Oxycodone Screen Not Detected (NotDetected); Phencyclidine (PCP) Not Detected (NotDetected); THC/Cannabinoid Screen Detected (NotDetected); Tricyclic Screen Not Detected (NotDetected)
[2024-06-14] MEDS ORDERED: Dextrose 50% Abboject 50 ML SYRINGE ONE (12:21)
[2024-06-14 12:31] LABS: Urine Culture Reflex No No
[2024-06-14] MEDS ORDERED: Ondansetron PF 4 MG/2 ML Vial IVP PRN (13:31)
[2024-06-14] MEDS ORDERED: Bisacodyl 5 MG TAB PO PRN (13:31)
[2024-06-14] MEDS ORDERED: Acetaminophen 650 MG Suppository PR PRN (13:31)
[2024-06-14] MEDS ORDERED: Acetaminophen 325 MG TAB PO PRN (13:31)
[2024-06-14] MEDS ORDERED: Electrolyte Replacement Protocol 1 EACH IVPB SCH (14:30)
[2024-06-14 14:42] LABS: Troponin I 0.152 ng/mL (< 0.028)
[2024-06-14] MEDS: Haloperidol Lactate 5 MG/ML VIAL IM SCH (14:45)
[2024-06-14] MEDS: Etomidate 40 MG (20 mL) VIAL IVP SCH (14:53)
[2024-06-14] MEDS: Electrolyte Replacement Protocol 1 EACH IVPB ONE (14:53)
[2024-06-14] MEDS: NS 0.9% w/ 20 MEQ KCL 1,000 ML/1,000 ML BAG IV SCH (14:53)
[2024-06-14 14:57] VITALS: BMI 17.8
[2024-06-14] MEDS: Sodium Chloride 0.9% 1,000 ML IV SCH (15:36)
[2024-06-14] MEDS ORDERED: Morphine 2 MG/ML VIAL SLOW IVP PRN (16:00)
[2024-06-14] MEDS ORDERED: Lorazepam 2 MG/ML VIAL SLOW IVP PRN (16:00)
[2024-06-14] MEDS ORDERED: DISCONTINUE PREVIOUS NARCOTIC PAIN MEDICATIONS AND BENZODIAZEPINES FS SCH (16:00)
[2024-06-14] MEDS ORDERED: Propofol BOLUS 1,000 MG/100 ML VIAL IV PRN (16:00)
[2024-06-14] MEDS ORDERED: Fentanyl BOLUS 250 ML IVPB PRN (16:00)
[2024-06-14] MEDS: Magnesium 2 GM/50 ML(in water) 2 GM in Premix 1 BAG IVPB SCH (20:34)
[2024-06-14] MEDS: Propofol 1,000 MG/100 ML VIAL IV PRN (20:41)
[2024-06-14] MEDS: Potassium Chloride 20 MEQ in Premix 1 BAG IVPB SCH (22:59)
[2024-06-15] MEDS: Sodium Chloride 0.9% 1,000 ML IV SCH (02:30)
[2024-06-15] MEDS ORDERED: Dextrose 5% in Water 1,000 ML IV PRN (04:01)
[2024-06-15] MEDS ORDERED: Glucagon 1 MG/ML KIT IM PRN (04:01)
[2024-06-15] MEDS: Dextrose 50% Abboject 50 ML SYRINGE SLOW IVP PRN (04:05)
[2024-06-15 04:15] LABS: #Basophils Less than 0.03 10x3/uL (0.0-0.2); %Basophils 0.2 % (0.0-1.0); %Eosinophils 0.3 % (0.0-10.0); %Lymphocytes 21.7 % (21.0-51.0); %Monocytes 5.7 % (0.0-10.0); %Neutrophils 71.5 % (42.0-75.0); Hematocrit 25.8 % (42.0-52.0); Mean Corpuscular HGB CONC 34.9 g/dL (32.0-36.0); Mean Corpuscular Hemoglobin 34.1 pg (27.0-31.0); Mean Corpuscular Volume 97.7 fL (78.0-98.0); Platelet Count 271 10x3/uL (130-400); RBC Distribution Width 13.6 % (11.5-14.5); Red Blood Cell (RBC) Count 2.64 mill/uL (4.70-6.10)
[2024-06-15 04:38] LABS: ALT (SGPT) 26 U/L (8-55); AST (SGOT) 64 U/L (5-34); Albumin 2.5 g/dL (3.5-5.0); Alkaline Phosphatase 65 U/L (40-110); Anion Gap 19 mmol/L (10-20); BUN (Urea Nitrogen) 12 mg/dL (8.4-25.7); Bilirubin, Total 1.4 mg/dL (0.2-1.2); CK (CPK) 1181 U/L (30-200); Calc. Creatinine Clearance 66 mL/min (70-130); Calcium 7.5 mg/dL (7.8-10.44); Carbon Dioxide 29 mmol/L (22-29); Chloride 95 mmol/L (98-107); Estimated GFR 79; Glucose 54 mg/dL (70-105); Magnesium 2.1 mg/dL (1.6-2.6); Protein, Total 5.5 g/dL (6.0-8.3); Sodium 141 mmol/L (136-145)
[2024-06-15] MEDS: Dextrose 50% Abboject 50 ML SYRINGE ONE (05:01)
[2024-06-15] MEDS: Sodium Chloride 0.9% 500 ML IV SCH (05:03)
[2024-06-15] MEDS: Potassium Bicarbonate/Cit Ac 20 MEQ TAB PER TUBE SCH (05:04)
[2024-06-15] MEDS: Potassium Chloride 20 MEQ in Premix 1 BAG IVPB SCH ×2 (06:03→12:38)
[2024-06-15] MEDS ORDERED: Metoprolol Tartrate 25 MG TAB PO SCH (09:00)
[2024-06-15] MEDS: Aspirin Chewable 81 MG TAB PO SCH (09:01)
[2024-06-15] MEDS: Enoxaparin 40 MG (0.4 mL) SYRINGE SC SCH (09:01)
[2024-06-15] MEDS: Pantoprazole 40 MG VIAL IVP SCH (09:01)
[2024-06-15] MEDS: Metoprolol Tartrate 25 MG TAB PER TUBE SCH (09:01)
[2024-06-15 09:13] LABS: Actual Bicarbonate (HCO3v) 32.8 mEq/L (22-28); Base Excess 8.5 mEq/L (-2.0 to +3.0); Calcium, Ionized (venous) 0.89 mmol/L (1.16-1.32); Chloride (VBG) 96 mmol/L (98-106); Hematocrit-VBG 28 % (42.0-52.0); Hemoglobin (Hb) 9.5 g/dL (13.1-17.2); Potassium (VBG) 4.44 mmol/L (3.70-5.30); Sodium 136 mmol/L (133-146); pH (venous) 7.488 (7.32-7.43)
[2024-06-15] MEDS: Amiodarone 150 MG/3 ML VIAL IVP SCH (09:47)
[2024-06-15] MEDS: Magnesium 2 GM/50 ML(in water) 2 GM in Premix 1 BAG IVPB SCH (09:49)
[2024-06-15] MEDS: Dextrose 50% Abboject 50 ML SYRINGE SLOW IVP SCH (09:51)
[2024-06-15] MEDS: Amiodarone 450 MG, Admixture Fee 1 EACH in Dextrose 5% in Water 250 ML IVPB SCH (10:22)
[2024-06-15 11:41] LABS: Troponin I 0.394 ng/mL (< 0.028)
[2024-06-15 12:12] LABS: Anion Gap 14 mmol/L (10-20); BUN (Urea Nitrogen) 11 mg/dL (8.4-25.7); Calc. Creatinine Clearance 74 mL/min (70-130); Calcium 7.2 mg/dL (7.8-10.44); Carbon Dioxide 32 mmol/L (22-29); Chloride 97 mmol/L (98-107); Estimated GFR 88; Glucose 154 mg/dL (70-105); Potassium 2.2 mmol/L (3.5-5.1); Sodium 141 mmol/L (136-145)
[2024-06-15] MEDS: NOREPINEPHRINE 8 MG/250 ML-D5W 250 ML IVPB SCH (13:13)
[2024-06-15 16:35] LABS: Anion Gap 14 mmol/L (10-20); BUN (Urea Nitrogen) 9 mg/dL (8.4-25.7); Calc. Creatinine Clearance 88 mL/min (70-130); Calcium 7.2 mg/dL (7.8-10.44); Carbon Dioxide 25 mmol/L (22-29); Chloride 100 mmol/L (98-107); Estimated GFR 101; Glucose 134 mg/dL (70-105); Potassium 2.9 mmol/L (3.5-5.1); Sodium 136 mmol/L (136-145)
[2024-06-15 16:55] LABS: Phosphorus 1.5 mg/dL (2.3-4.7)
[2024-06-15] MEDS: Potassium Chloride 40 MEQ in Premix 1 BAG IVPB SCH (17:12)
[2024-06-15] MEDS: Potassium Phosphate 22 MMOL in Sodium Chloride 0.9% 250 ML 250 ML IVPB SCH (17:30)
[2024-06-15] MEDS: NS 0.9% w/ 40 MEQ KCL 1,000 ML IV SCH (18:51)
[2024-06-15] MEDS: Atorvastatin Calcium 40 MG TAB PER TUBE SCH (20:59)
[2024-06-15 21:46] LABS: Anion Gap 15 mmol/L (10-20); BUN (Urea Nitrogen) 9 mg/dL (8.4-25.7); Calc. Creatinine Clearance 81 mL/min (70-130); Calcium 7.1 mg/dL (7.8-10.44); Carbon Dioxide 26 mmol/L (22-29); Chloride 101 mmol/L (98-107); Estimated GFR 99; Glucose 154 mg/dL (70-105); Potassium 4.2 mmol/L (3.5-5.1); Sodium 138 mmol/L (136-145)
[2024-06-16 00:03] LABS: Potassium 3.9 mmol/L (3.5-5.1)
[2024-06-16 01:05] LABS: Anion Gap 13 mmol/L (10-20); BUN (Urea Nitrogen) 8 mg/dL (8.4-25.7); Calc. Creatinine Clearance 74 mL/min (70-130); Calcium 7.4 mg/dL (7.8-10.44); Carbon Dioxide 27 mmol/L (22-29); Chloride 102 mmol/L (98-107); Estimated GFR 89; Glucose 150 mg/dL (70-105); Potassium 4.1 mmol/L (3.5-5.1); Sodium 138 mmol/L (136-145)
[2024-06-16 03:51] LABS: #Basophils 0.03 10x3/uL (0.0-0.2); #Eosinophils Less than 0.03 10x3/uL (0.0-0.7); %Basophils 0.2 % (0.0-1.0); %Eosinophils 0.1 % (0.0-10.0); %Lymphocytes 12.5 % (21.0-51.0); %Monocytes 6.6 % (0.0-10.0); %Neutrophils 79.9 % (42.0-75.0); Hematocrit 26.5 % (42.0-52.0); Hemoglobin 9.3 g/dL (14.0-18.0); Mean Corpuscular HGB CONC 35.1 g/dL (32.0-36.0); Mean Corpuscular Hemoglobin 34.4 pg (27.0-31.0); Mean Corpuscular Volume 98.1 fL (78.0-98.0); Mean Platelet Volume 9.6 fL (7.4-10.4); Platelet Count 319 10x3/uL (130-400); RBC Distribution Width 14.2 % (11.5-14.5)
[2024-06-16 04:02] LABS: Phosphorus 1.8 mg/dL (2.3-4.7)
[2024-06-16 04:09] LABS: ALT (SGPT) 42 U/L (8-55); AST (SGOT) 91 U/L (5-34); Albumin 2.1 g/dL (3.5-5.0); Alkaline Phosphatase 62 U/L (40-110); Anion Gap 14 mmol/L (10-20); BUN (Urea Nitrogen) 8 mg/dL (8.4-25.7); CK (CPK) 516 U/L (30-200); Calc. Creatinine Clearance 80 mL/min (70-130); Calcium 7.2 mg/dL (7.8-10.44); Carbon Dioxide 25 mmol/L (22-29); Chloride 103 mmol/L (98-107); Estimated GFR 98; Globulin 3.1 g/dL (2.4-3.5); Glucose 153 mg/dL (70-105); Potassium 4.4 mmol/L (3.5-5.1); Protein, Total 5.2 g/dL (6.0-8.3); Sodium 138 mmol/L (136-145)
[2024-06-16] MEDS: Potassium Phosphate 15 MMOL in Sodium Chloride 0.9% 100 ML IVPB SCH (05:32)
[2024-06-16] MEDS: Dexmedetomidine In 0.9 % NaCl 100 ML IVPB SCH (08:48)
[2024-06-16] MEDS: Glycopyrrolate 0.4 MG/ 2 ML VIAL SLOW IVP SCH (09:07)
[2024-06-16 11:53] LABS: Anion Gap 13 mmol/L (10-20); BUN (Urea Nitrogen) 7 mg/dL (8.4-25.7); Calc. Creatinine Clearance 91 mL/min (70-130); Calcium 7.1 mg/dL (7.8-10.44); Carbon Dioxide 24 mmol/L (22-29); Chloride 106 mmol/L (98-107); Estimated GFR 96; Glucose 97 mg/dL (70-105); Potassium 3.8 mmol/L (3.5-5.1); Sodium 139 mmol/L (136-145)
[2024-06-17 05:45] LABS: #Basophils 0.03 10x3/uL (0.0-0.2); %Basophils 0.2 % (0.0-1.0); %Eosinophils 0.5 % (0.0-10.0); %Lymphocytes 12.2 % (21.0-51.0); %Neutrophils 80.2 % (42.0-75.0); Hematocrit 26.3 % (42.0-52.0); Mean Corpuscular HGB CONC 34.2 g/dL (32.0-36.0); Mean Corpuscular Hemoglobin 33.8 pg (27.0-31.0); Mean Corpuscular Volume 98.9 fL (78.0-98.0); Mean Platelet Volume 9.6 fL (7.4-10.4); Platelet Count 249 10x3/uL (130-400); RBC Distribution Width 14.3 % (11.5-14.5); Red Blood Cell (RBC) Count 2.66 mill/uL (4.70-6.10)
[2024-06-17 06:03] LABS: ALT (SGPT) 44 U/L (8-55); AST (SGOT) 66 U/L (5-34); Albumin 2.1 g/dL (3.5-5.0); Alkaline Phosphatase 64 U/L (40-110); Anion Gap 13 mmol/L (10-20); BUN (Urea Nitrogen) 7 mg/dL (8.4-25.7); Bilirubin, Total 1.2 mg/dL (0.2-1.2); CK (CPK) 431 U/L (30-200); Calc. Creatinine Clearance 100 mL/min (70-130); Calcium 7.5 mg/dL (7.8-10.44); Carbon Dioxide 19 mmol/L (22-29); Chloride 110 mmol/L (98-107); Estimated GFR 101; Globulin 2.8 g/dL (2.4-3.5); Glucose 81 mg/dL (70-105); Potassium 4.5 mmol/L (3.5-5.1); Protein, Total 4.9 g/dL (6.0-8.3); Sodium 137 mmol/L (136-145)
[2024-06-17] MEDS: Potassium Chloride 20 MEQ in Premix 1 BAG IVPB SCH (07:02)
[2024-06-17 13:08] VITALS: BMI 20.7
[2024-06-17] MEDS: Benzocaine 20% Spray 60 ML CAN PO SCH (22:13)
[2024-06-18 06:12] LABS: #Basophils 0.04 10x3/uL (0.0-0.2); %Basophils 0.3 % (0.0-1.0); %Eosinophils 1.1 % (0.0-10.0); %Lymphocytes 16.2 % (21.0-51.0); %Monocytes 7.4 % (0.0-10.0); %Neutrophils 74.2 % (42.0-75.0); Hematocrit 24.1 % (42.0-52.0); Hemoglobin 8.3 g/dL (14.0-18.0); Mean Corpuscular HGB CONC 34.4 g/dL (32.0-36.0); Mean Corpuscular Hemoglobin 33.9 pg (27.0-31.0); Mean Corpuscular Volume 98.4 fL (78.0-98.0); Mean Platelet Volume 9.8 fL (7.4-10.4); Platelet Count 254 10x3/uL (130-400); RBC Distribution Width 14.3 % (11.5-14.5); Red Blood Cell (RBC) Count 2.45 mill/uL (4.70-6.10)
[2024-06-18 06:33] LABS: ALT (SGPT) 39 U/L (8-55); AST (SGOT) 57 U/L (5-34); Albumin 1.9 g/dL (3.5-5.0); Alkaline Phosphatase 78 U/L (40-110); Anion Gap 7 mmol/L (10-20); BUN (Urea Nitrogen) 12 mg/dL (8.4-25.7); Bilirubin, Total 0.6 mg/dL (0.2-1.2); Calc. Creatinine Clearance 96 mL/min (70-130); Calcium 7.9 mg/dL (7.8-10.44); Carbon Dioxide 19 mmol/L (22-29); Chloride 112 mmol/L (98-107); Estimated GFR 100; Glucose 85 mg/dL (70-105); Potassium 4.3 mmol/L (3.5-5.1); Protein, Total 4.9 g/dL (6.0-8.3); Sodium 134 mmol/L (136-145)
[2024-06-18 07:58] VITALS: BP 124/72; TEMP 98
[2024-06-18] MEDS: Pantoprazole DR 40 MG TAB PO SCH (09:09)
== END 2024-06-18 10:05 | disposition home or self-care (01) | DRG 917 ==
LOC: ERS 10:29 → CCU 14:15 → T4-A 06-17 20:28
PROVIDERS: ADMIT Internal Medicine; ATTEND Internal Medicine
PROC: 5A1945Z Respiratory Ventilation, 24-96 Consecutive Hours (ICD-10-PCS; principal; 2024-06-14)
PROC: 4A133R1 Monitoring of Arterial Saturation, Peripheral, Percutaneous Approach (ICD-10-PCS; 2024-06-14)
PROC: XX20X89 Monitoring of Brain Electrical Activity, Computer-aided Detection and Notification, New Technology Group 9 (ICD-10-PCS; 2024-06-14)
PROC: 3E033XZ Introduction of Vasopressor into Peripheral Vein, Percutaneous Approach (ICD-10-PCS; 2024-06-15)
DX: T40.601A Poisoning by unspecified narcotics, accidental (unintentional), initial encounter (principal); G93.41 Metabolic encephalopathy; I21.A1 Myocardial infarction type 2; J96.01 Acute respiratory failure with hypoxia; M62.82 Rhabdomyolysis; I13.0 Hypertensive heart and chronic kidney disease with heart failure and stage 1 through stage 4 chronic kidney disease, or unspecified chronic kidney disease; F20.0 Paranoid schizophrenia; I42.9 Cardiomyopathy, unspecified; I50.32 Chronic diastolic (congestive) heart failure; E87.3 Alkalosis; N17.9 Acute kidney failure, unspecified; I47.20 Ventricular tachycardia, unspecified; E87.6 Hypokalemia; I25.10 Atherosclerotic heart disease of native coronary artery without angina pectoris; K21.9 Gastro-esophageal reflux disease without esophagitis; D63.1 Anemia in chronic kidney disease; F10.90 Alcohol use, unspecified, uncomplicated; E87.5 Hyperkalemia; E16.2 Hypoglycemia, unspecified; R94.31 Abnormal electrocardiogram [ECG] [EKG]; E83.42 Hypomagnesemia; X58.XXXA Exposure to other specified factors, initial encounter; N18.2 Chronic kidney disease, stage 2 (mild); Z79.82 Long term (current) use of aspirin; Z85.46 Personal history of malignant neoplasm of prostate; Z95.5 Presence of coronary angioplasty implant and graft; Z79.02 Long term (current) use of antithrombotics/antiplatelets; Z79.899 Other long term (current) drug therapy
CPT/HCPCS: 31500; 36415; 36416; 36600; 43753; 51702; 70450; 71045; 80053; 80306; 80307; 81001; 82140; 82550; 82805; 83690; 83735; 84100; 84443; 84484; 85025; 93005; 93010; 93306; 94002; 94003; 96361; 96365; 96375; J0282; J1630; J1650; J2470; J2704; J3010; J3475; J3480; J7030; J7050; J7070; J7999

== ENCOUNTER 2025-03-01 14:38 | Inpatient (IN) | payer OTHER ==
[2025-03-01] MEDS ORDERED: Ondansetron PF 4 MG/2 ML Vial ONE (17:13)
[2025-03-01 17:33] LABS: #Basophils 0.03 10x3/uL (0.0-0.2); #Eosinophils Less than 0.03 10x3/uL (0.0-0.7); #Monocytes 0.89 10x3/uL (0.11-0.59); #Neutrophils 6.48 10x3/uL (1.40-6.50); %Basophils 0.3 % (0.0-1.0); %Eosinophils 0.1 % (0.0-10.0); %Lymphocytes 19.7 % (21.0-51.0); %Monocytes 9.6 % (0.0-10.0); %Neutrophils 69.9 % (42.0-75.0); Hematocrit 30.9 % (42.0-52.0); Hemoglobin 10.2 g/dL (14.0-18.0); Mean Corpuscular Hemoglobin 28.7 pg (27.0-31.0); Mean Corpuscular Volume 86.8 fL (78.0-98.0); Platelet Count 391 10x3/uL (130-400); Red Blood Cell (RBC) Count 3.56 mill/uL (4.70-6.10); White Blood Cell (WBC) Count 9.28 10x3/uL (4.8-10.8)
[2025-03-01 19:31] LABS: Chloride 69 mmol/L (98-107); Sodium 143 mmol/L (136-145)
[2025-03-01 19:32] LABS: Albumin 2.7 g/dL (3.1-4.5); Calcium 9.1 mg/dL (7.8-10.44)
[2025-03-01 19:33] LABS: ALT (SGPT) 10 U/L (Less than 45); AST (SGOT) 57 U/L (11-34); Alkaline Phosphatase 79 U/L (40-110); BUN (Urea Nitrogen) 19 mg/dL (8.4-25.7); Bilirubin, Total 0.7 mg/dL (0.3-1.2); Calc. Creatinine Clearance 0 mL/min (70-130); Globulin 3.7 g/dL (2.4-3.5); Glucose 97 mg/dL (70-105); Lipase 14 U/L (8-78); Potassium 1.9 mmol/L (3.5-5.1)
[2025-03-01 19:35] LABS: Anion Gap 20 mmol/L (10-20); Carbon Dioxide 56 mmol/L (22-29)
[2025-03-01] MEDS ORDERED: Potassium Bicarbonate/Cit Ac 20 MEQ TAB ONE (19:52)
[2025-03-01] MEDS ORDERED: Potassium Chloride 20 MEQ (100 mL) BAG ONE (19:53)
[2025-03-01 20:37] LABS: Magnesium 1.9 mg/dL (1.6-2.6)
[2025-03-01] MEDS ORDERED: Acetaminophen 325 MG TAB PO PRN (23:51)
[2025-03-01] MEDS ORDERED: Guaifenesin DM 100-10/5 ML UDCUP PO PRN (23:51)
[2025-03-01] MEDS ORDERED: Calcium Carbonate 500 MG ChewTAB PO PRN (23:51)
[2025-03-01] MEDS ORDERED: Senokot S 8.6-50 MG TAB PO PRN (23:51)
[2025-03-02 00:56] LABS: Calcium, Ionized (venous) 0.90 mmol/L (1.16-1.32); Chloride (VBG) 75 mmol/L (98-106); Hematocrit-VBG 31 % (42.0-52.0); Hemoglobin (Hb) 10.6 g/dL (13.1-17.2); Sodium 136 mmol/L (133-146)
[2025-03-02 01:00] LABS: Actual Bicarbonate (HCO3v) 57.4 mEq/L (22-28); Base Excess 32.3 mEq/L (-2.0 to +3.0); Potassium (VBG) 2.04 mmol/L (3.70-5.30)
[2025-03-02] MEDS: Albumin 25% 25 GM (100 mL) BOT IVPB SCH (01:26)
[2025-03-02] MEDS: Magnesium 2 GM/50 ML(in water) 2 GM in Premix 1 BAG IVPB SCH (01:26)
[2025-03-02] MEDS: Prochlorperazine 10 MG/2 ML VIAL SLOW IVP SCH (01:45)
[2025-03-02 03:59] LABS: Calcium, Ionized (venous) 0.96 mmol/L (1.16-1.32); Chloride (VBG) 75 mmol/L (98-106); Hematocrit-VBG 29 % (42.0-52.0); Hemoglobin (Hb) 10.0 g/dL (13.1-17.2); Sodium 139 mmol/L (133-146)
[2025-03-02 04:03] LABS: Base Excess 33.8 mEq/L (-2.0 to +3.0)
[2025-03-02 04:04] LABS: #Basophils 0.04 10x3/uL (0.0-0.2); #Eosinophils 0.04 10x3/uL (0.0-0.7); #Monocytes 0.84 10x3/uL (0.11-0.59); #Neutrophils 6.07 10x3/uL (1.40-6.50); %Basophils 0.4 % (0.0-1.0); %Eosinophils 0.4 % (0.0-10.0); %Lymphocytes 23.2 % (21.0-51.0); %Monocytes 9.2 % (0.0-10.0); %Neutrophils 66.5 % (42.0-75.0); Hematocrit 27.1 % (42.0-52.0); Hemoglobin 8.7 g/dL (14.0-18.0); Mean Corpuscular Hemoglobin 28.7 pg (27.0-31.0); Mean Corpuscular Volume 89.4 fL (78.0-98.0); Platelet Count 330 10x3/uL (130-400); Red Blood Cell (RBC) Count 3.03 mill/uL (4.70-6.10); White Blood Cell (WBC) Count 9.14 10x3/uL (4.8-10.8)
[2025-03-02 04:53] LABS: BUN (Urea Nitrogen) 19 mg/dL (8.4-25.7); Calc. Creatinine Clearance 51 mL/min (70-130); Calcium 9.0 mg/dL (7.8-10.44); Carbon Dioxide 57 mmol/L (22-29); Chloride 72 mmol/L (98-107); Glucose 114 mg/dL (70-105); Potassium 2.2 mmol/L (3.5-5.1); Sodium 145 mmol/L (136-145)
[2025-03-02 04:54] LABS: Anion Gap 17 mmol/L (10-20)
[2025-03-02] MEDS: NS 0.9% w/ 40 MEQ KCL 1,000 ML IV SCH (06:10)
[2025-03-02 06:18] LABS: Bacteria/HPF None Seen HPF (None Seen); Glucose, Urine (Dipstick) Normal (Negative); Leukocyte Negative Leu/uL (Negative); Protein, Urine (Dipstick) 30 mg/dL (Neg-Trace); RBC/HPF 0-3 HPF (0-3); Specific Gravity, Urine 1.016 (1.002-1.036); WBC/HPF 0-3 HPF (0-3)
[2025-03-02 06:22] LABS: Cocaine Metabolite Screen PRELIM POSITIVE (Negative); THC/Cannabinoid Screen Negative (Negative); Tricyclic Screen Negative (Negative)
[2025-03-02 07:59] LABS: Albumin 3.2 g/dL (3.1-4.5); Magnesium 1.9 mg/dL (1.6-2.6)
[2025-03-02] MEDS ORDERED: Metoprolol Succinate XL 25 MG ER.TAB PO SCH (09:00)
[2025-03-02] MEDS ORDERED: Multivit, Therapeutic 1 TAB PO SCH (09:00)
[2025-03-02] MEDS: Pantoprazole 40 MG DR.TAB PO SCH (10:34)
[2025-03-02] MEDS: Multivitamin W/ Minerals 1 TAB PO SCH (10:34)
[2025-03-02] MEDS: Aspirin Chewable 81 MG TAB PO SCH (10:34)
[2025-03-02] MEDS: TICAGRELOR 90 MG TABLET PO SCH (10:34)
[2025-03-02] MEDS: Folic Acid 1 MG TAB PO SCH (10:35)
[2025-03-02] MEDS: Enoxaparin 40 MG (0.4 mL) SYRINGE SC SCH (10:36)
[2025-03-02] MEDS: Pantoprazole 40 MG VIAL IVP SCH ×2 (13:49→21:15)
[2025-03-02 17:08] LABS: Hematocrit 27.2 % (42.0-52.0); Hemoglobin 8.7 g/dL (14.0-18.0)
[2025-03-02 17:32] LABS: ALT (SGPT) 11 U/L (Less than 45); AST (SGOT) 56 U/L (11-34); Albumin 3.1 g/dL (3.1-4.5); Alkaline Phosphatase 75 U/L (40-110); Anion Gap 16 mmol/L (10-20); BUN (Urea Nitrogen) 23 mg/dL (8.4-25.7); Bilirubin, Total 0.6 mg/dL (0.3-1.2); Calc. Creatinine Clearance 69 mL/min (70-130); Calcium 9.2 mg/dL (7.8-10.44); Carbon Dioxide 43 mmol/L (22-29); Chloride 84 mmol/L (98-107); Globulin 3.3 g/dL (2.4-3.5); Glucose 105 mg/dL (70-105); Potassium 3.3 mmol/L (3.5-5.1); Sodium 140 mmol/L (136-145)
[2025-03-03 04:31] LABS: Hematocrit 25.0 % (42.0-52.0); Hemoglobin 8.1 g/dL (14.0-18.0); Mean Corpuscular Hemoglobin 28.5 pg (27.0-31.0); Mean Corpuscular Volume 88.0 fL (78.0-98.0); Platelet Count 313 10x3/uL (130-400); Red Blood Cell (RBC) Count 2.84 mill/uL (4.70-6.10); White Blood Cell (WBC) Count 11.56 10x3/uL (4.8-10.8)
[2025-03-03 04:49] LABS: Anion Gap 10 mmol/L (10-20); BUN (Urea Nitrogen) 18 mg/dL (8.4-25.7); Calc. Creatinine Clearance 81 mL/min (70-130); Calcium 8.9 mg/dL (7.8-10.44); Carbon Dioxide 36 mmol/L (22-29); Chloride 91 mmol/L (98-107); Glucose 86 mg/dL (70-105); Iron 36 ug/dL (65-175); Iron Binding Capacity, Total 276 mcg/dL (261-462); Potassium 3.4 mmol/L (3.5-5.1); Sodium 134 mmol/L (136-145)
[2025-03-03 07:35] LABS: Actual Bicarbonate (HCO3v) 60.3 mEq/L (22-28)
[2025-03-03 07:36] LABS: Potassium (VBG) 2.27 mmol/L (3.70-5.30)
[2025-03-03 08:20] LABS: Magnesium 1.9 mg/dL (1.6-2.6)
[2025-03-03] MEDS: Potassium Phosphate 30 MMOL in Sodium Chloride 0.9% 250 ML 250 ML IVPB SCH (09:30)
[2025-03-03 09:51] LABS: Osmolality, Serum 278 mOsm/kg (275-295)
[2025-03-03] MEDS: Sodium Ferric Gluconate 250 MG in Sodium Chloride 0.9% 250 ML 250 ML IVPB SCH (10:28)
[2025-03-03 13:53] LABS: Osmolality, Urine 340 mOsm/kg (50-1200)
[2025-03-03] MEDS: Ondansetron PF 4 MG/2 ML Vial IVP PRN (17:33)
[2025-03-04 06:51] LABS: #Basophils 0.03 10x3/uL (0.0-0.2); #Eosinophils 0.23 10x3/uL (0.0-0.7); #Monocytes 0.55 10x3/uL (0.11-0.59); #Neutrophils 4.85 10x3/uL (1.40-6.50); %Basophils 0.4 % (0.0-1.0); %Eosinophils 2.9 % (0.0-10.0); %Lymphocytes 27.2 % (21.0-51.0); %Monocytes 7.0 % (0.0-10.0); %Neutrophils 62.1 % (42.0-75.0); Hematocrit 23.5 % (42.0-52.0); Hemoglobin 7.5 g/dL (14.0-18.0); Mean Corpuscular Hemoglobin 28.6 pg (27.0-31.0); Mean Corpuscular Volume 89.7 fL (78.0-98.0); Platelet Count 313 10x3/uL (130-400); Red Blood Cell (RBC) Count 2.62 mill/uL (4.70-6.10); White Blood Cell (WBC) Count 7.82 10x3/uL (4.8-10.8)
[2025-03-04 07:08] LABS: Albumin 2.5 g/dL (3.1-4.5); Anion Gap 11 mmol/L (10-20); BUN (Urea Nitrogen) 8 mg/dL (8.4-25.7); BUN/Creatinine Ratio 10.96; Calc. Creatinine Clearance 97 mL/min (70-130); Calcium 8.6 mg/dL (7.8-10.44); Carbon Dioxide 24 mmol/L (22-29); Chloride 106 mmol/L (98-107); Glucose 77 mg/dL (70-105); Magnesium 1.5 mg/dL (1.6-2.6); Potassium 4.8 mmol/L (3.5-5.1); Sodium 136 mmol/L (136-145)
[2025-03-04] MEDS ORDERED: PROPOFOL 20 ML ONE (09:16)
[2025-03-04] MEDS ORDERED: GLYCOPYRROLATE/PF 0.2 MG/ML VIAL ONE (09:17)
[2025-03-04] MEDS ORDERED: PHENYLEPHRINE-NS 100 MCG/ML 10 ML SYRINGE ONE (09:39)
[2025-03-04] MEDS: Magnesium Sulfate In Water 4 GM in Premix 1 BAG IVPB SCH (11:08)
[2025-03-04 14:04] VITALS: BMI 17.9
[2025-03-05 04:38] LABS: #Basophils Less than 0.03 10x3/uL (0.0-0.2); #Eosinophils 0.13 10x3/uL (0.0-0.7); #Monocytes 0.33 10x3/uL (0.11-0.59); #Neutrophils 6.15 10x3/uL (1.40-6.50); %Basophils 0.2 % (0.0-1.0); %Eosinophils 1.6 % (0.0-10.0); %Lymphocytes 18.8 % (21.0-51.0); %Monocytes 4.0 % (0.0-10.0); %Neutrophils 74.9 % (42.0-75.0); Hematocrit 25.4 % (42.0-52.0); Hemoglobin 8.1 g/dL (14.0-18.0); Mean Corpuscular Hemoglobin 28.8 pg (27.0-31.0); Mean Corpuscular Volume 90.4 fL (78.0-98.0); Platelet Count 374 10x3/uL (130-400); Red Blood Cell (RBC) Count 2.81 mill/uL (4.70-6.10); White Blood Cell (WBC) Count 8.21 10x3/uL (4.8-10.8)
[2025-03-05 05:00] LABS: Albumin 2.8 g/dL (3.1-4.5); Anion Gap 13 mmol/L (10-20); BUN (Urea Nitrogen) 8 mg/dL (8.4-25.7); BUN/Creatinine Ratio 9.20; Calc. Creatinine Clearance 84 mL/min (70-130); Calcium 8.8 mg/dL (7.8-10.44); Carbon Dioxide 23 mmol/L (22-29); Chloride 106 mmol/L (98-107); Glucose 74 mg/dL (70-105); Potassium 5.5 mmol/L (3.5-5.1); Sodium 136 mmol/L (136-145)
[2025-03-05 08:45] LABS: Anion Gap 12 mmol/L (10-20); BUN (Urea Nitrogen) 10 mg/dL (8.4-25.7); Calc. Creatinine Clearance 85 mL/min (70-130); Calcium 8.8 mg/dL (7.8-10.44); Carbon Dioxide 22 mmol/L (22-29); Chloride 107 mmol/L (98-107); Glucose 82 mg/dL (70-105); Potassium 5.4 mmol/L (3.5-5.1); Sodium 136 mmol/L (136-145)
[2025-03-05 08:46] LABS: Magnesium 1.9 mg/dL (1.6-2.6)
[2025-03-05] MEDS: Thiamine 100 MG TAB PO SCH (10:34)
[2025-03-05] MEDS: LOKELMA 10 GM PACKET PO SCH (12:33)
[2025-03-05 15:59] VITALS: BP 102/66; TEMP 98.3
== END 2025-03-05 16:42 | disposition home or self-care (01) | DRG 640 ==
LOC: ERS 14:38 → ERHOLD 21:35 → 2SE 23:47
PROVIDERS: ADMIT Student in an Organized Health Care Education/Training Program; ATTEND Internal Medicine
PROC: 30233J1 Transfusion of Nonautologous Serum Albumin into Peripheral Vein, Percutaneous Approach (ICD-10-PCS; 2025-03-02)
PROC: 0D778ZZ Dilation of Stomach, Pylorus, Via Natural or Artificial Opening Endoscopic (ICD-10-PCS; principal; 2025-03-04)
DX: E87.6 Hypokalemia (principal); G92.8 Other toxic encephalopathy; N17.9 Acute kidney failure, unspecified; I50.32 Chronic diastolic (congestive) heart failure; E44.1 Mild protein-calorie malnutrition; K22.10 Ulcer of esophagus without bleeding; K31.1 Adult hypertrophic pyloric stenosis; R64 Cachexia; Z68.1 Body mass index [BMI] 19.9 or less, adult; E87.3 Alkalosis; E87.1 Hypo-osmolality and hyponatremia; K21.9 Gastro-esophageal reflux disease without esophagitis; I25.10 Atherosclerotic heart disease of native coronary artery without angina pectoris; Z98.890 Other specified postprocedural states; Z72.0 Tobacco use; E88.09 Other disorders of plasma-protein metabolism, not elsewhere classified; Z85.46 Personal history of malignant neoplasm of prostate; E83.39 Other disorders of phosphorus metabolism; F14.10 Cocaine abuse, uncomplicated; E83.42 Hypomagnesemia; K44.9 Diaphragmatic hernia without obstruction or gangrene; E87.5 Hyperkalemia; Z79.899 Other long term (current) drug therapy; Z79.82 Long term (current) use of aspirin; E86.0 Dehydration; Z85.028 Personal history of other malignant neoplasm of stomach; I25.2 Old myocardial infarction; I11.0 Hypertensive heart disease with heart failure; Z95.5 Presence of coronary angioplasty implant and graft; R94.31 Abnormal electrocardiogram [ECG] [EKG]; D53.9 Nutritional anemia, unspecified; R45.1 Restlessness and agitation; Z71.51 Drug abuse counseling and surveillance of drug abuser; R06.6 Hiccough
CPT/HCPCS: 36415; 36416; 74176; 80048; 80053; 80069; 80306; 81001; 82040; 82550; 82728; 82805; 83540; 83550; 83690; 83735; 83930; 83935; 84100; 85025; 85027; 86850; 86900; 86901; 93005; 96360; 96361; J0780; J1650; J2060; J2470; J2704; J2916; J3411; J3475; J3480; J3490; J7050; J7120; P9047

== ENCOUNTER 2025-05-17 15:10 | Emergency (ER) | payer MEDICARE, OTHER ==
[~2025-05-17 15:10] MED LIST: Iopamidol-370 76% 500 ML MDV (1 ML CHARGE) ONE
[2025-05-17 16:29] LABS: #Basophils 0.03 10x3/uL (0.0-0.2); #Eosinophils 0.03 10x3/uL (0.0-0.7); #Monocytes 0.54 10x3/uL (0.11-0.59); #Neutrophils 5.41 10x3/uL (1.40-6.50); %Basophils 0.4 % (0.0-1.0); %Eosinophils 0.4 % (0.0-10.0); %Lymphocytes 23.0 % (21.0-51.0); %Monocytes 6.9 % (0.0-10.0); %Neutrophils 69.0 % (42.0-75.0); Hematocrit 37.2 % (42.0-52.0); Hemoglobin 12.7 g/dL (14.0-18.0); Mean Corpuscular Hemoglobin 29.5 pg (27.0-31.0); Mean Corpuscular Volume 86.5 fL (78.0-98.0); Platelet Count 364 10x3/uL (130-400); Red Blood Cell (RBC) Count 4.30 mill/uL (4.70-6.10); White Blood Cell (WBC) Count 7.83 10x3/uL (4.8-10.8)
[2025-05-17 16:35] LABS: Glucose, Urine (Dipstick) 250 mg/dL (Negative); Leukocyte Negative (Negative); Protein, Urine (Dipstick) 100 mg/dL (Neg-Trace); Specific Gravity, Urine Greater/Equal 1.030 (1.005-1.030)
[2025-05-17 16:47] LABS: Bacteria/HPF 2+ HPF (None Seen); CAUTI Indications for Culture Dysuria,urgency,freq; RBC/HPF 0-3 HPF (0-3); WBC/HPF 0-3 HPF (0-3)
[2025-05-17 16:49] LABS: Urine Culture Reflex No No
[2025-05-17] MEDS ORDERED: Aspirin Chewable 81 MG TAB ONE (16:58)
[2025-05-17] MEDS ORDERED: LevoFLOXacin 750 mg/D5W 150 ml Premix Bag ONE (17:22)
[2025-05-17 17:29] LABS: Albumin 3.7 g/dL (3.1-4.5); Alkaline Phosphatase 95 U/L (40-110); Anion Gap 20 mmol/L (10-20); Bilirubin, Total 0.7 mg/dL (0.3-1.2); Calcium 9.6 mg/dL (7.8-10.44); Carbon Dioxide 40 mmol/L (22-29); Chloride 84 mmol/L (98-107); Globulin 4.3 g/dL (2.4-3.5); Glucose 100 mg/dL (70-105); Potassium 3.2 mmol/L (3.5-5.1); Sodium 141 mmol/L (136-145)
[2025-05-17 17:30] LABS: BUN (Urea Nitrogen) 9 mg/dL (8.4-25.7); Calc. Creatinine Clearance 0 mL/min (70-130)
[2025-05-17 17:32] LABS: ALT (SGPT) 11 U/L (Less than 45); AST (SGOT) 22 U/L (11-34)
[2025-05-17 18:29] LABS: Lipase 13 U/L (8-78)
== END 2025-05-17 19:06 | disposition home or self-care (01) ==
LOC: ERS 15:10
DX: N39.0 Urinary tract infection, site not specified (principal); I10 Essential (primary) hypertension; I25.2 Old myocardial infarction; F17.210 Nicotine dependence, cigarettes, uncomplicated
CPT/HCPCS: 71260; 74177; 80053; 81001; 83690; 84484; 85025; 87086; 87428; 93005; J1956; 96361; 96365; 96366; 96375; Q0161; Q9967